=== PATIENT | female | born 1990 | race Caucasian/White ===

== ENCOUNTER → 2020-01-15 | Outpatient (CLI) | payer OTHER ==
[~2020-01-15] VITALS: Ht 157.5 cm; Wt 68.2 kg
[~2020-01-15] MED LIST: ACET65TA OR; IBUP800T OR; IRON SUCROSE 300 MG in NS 250 ML OVER 90 MIN. IV ONE; PRENTAB8 PO
[2020-01-15 10:25] VITALS: BP 112/73
[2020-01-15 11:20] VITALS: BP 107/60
[2020-01-15 12:35] VITALS: BP_SYST 116; BP_SYST 141; BP_DIAS 59; BP_DIAS 84
[2020-01-15 13:00] VITALS: BP 118/64
== END ==
LOC: M INFU 10:18
PROVIDERS: ATTEND Registered Nurse Maternal Newborn
DX: O99.013 Anemia complicating pregnancy, third trimester (principal); D50.9 Iron deficiency anemia, unspecified; Z3A.28 28 weeks gestation of pregnancy
CPT/HCPCS: 96365; J1756

== ENCOUNTER 2020-01-22 08:01 | Outpatient (CLI) | payer OTHER ==
[~2020-01-22] VITALS: Ht 157.5 cm; Wt 72.7 kg
[~2020-01-22 08:01] MED LIST changes: -IRON SUCROSE 300 MG in NS 250 ML OVER 90 MIN. IV ONE
[2020-01-22 08:05] VITALS: BP 102/63
[2020-01-22] MEDS ORDERED: IRON SUCROSE 300 MG in NS 250 ML OVER 90 MIN. IV ONE (09:00)
[2020-01-22 09:30] VITALS: BP 100/56
[2020-01-22 10:30] VITALS: BP 107/68
[2020-01-22 11:10] VITALS: BP 121/67
== END 2020-01-22 11:40 | disposition home or self-care (01) ==
LOC: M INFU 08:01
PROVIDERS: ATTEND Registered Nurse Maternal Newborn
DX: O99.013 Anemia complicating pregnancy, third trimester (principal); Z3A.28 28 weeks gestation of pregnancy
CPT/HCPCS: 96365; 96366; J1756

== ENCOUNTER 2020-01-29 07:58 | Outpatient (CLI) | payer OTHER ==
[~2020-01-29] VITALS: Ht 157.5 cm; Wt 68.2 kg
[2020-01-29 08:25] VITALS: BP 115/56
[2020-01-29 08:45] VITALS: BP 107/56
[2020-01-29] MEDS ORDERED: IRON SUCROSE 300 MG in NS 250 ML OVER 90 MIN. IV ONE (09:00)
[2020-01-29 09:45] VITALS: BP 107/59
[2020-01-29 10:12] VITALS: BP 114/71
== END 2020-01-29 10:15 | disposition home or self-care (01) ==
LOC: M INFU 07:58
PROVIDERS: ATTEND Registered Nurse Maternal Newborn
DX: O99.013 Anemia complicating pregnancy, third trimester (principal); Z3A.28 28 weeks gestation of pregnancy; Z88.5 Allergy status to narcotic agent
CPT/HCPCS: 96365; J1756

== ENCOUNTER 2020-04-01 13:53 | Inpatient (IN) | payer OTHER ==
[2020-04-01] VITALS (18 sets, daily range): BP systolic 99–125; BP diastolic 53–81
[~2020-04-01] VITALS: Ht 157.5 cm; Wt 83.0 kg
[2020-04-01] MEDS ORDERED: IRON65TA2 PO (14:30)
[2020-04-01] MEDS ORDERED: TUMS500C PO (14:30)
[2020-04-01] MEDS ORDERED: LACTATED RINGER'S 1000 ML IV STA (14:41)
[2020-04-01] MEDS ORDERED: OXYTOCIN DRIP 30 UNITS in IV 1 EA IV SCH (14:45)
[2020-04-01 15:06] LABS: BASO % 0.1 % (0.0-1.0); EOS % 0.4 % (0.0-3.0); HEMOGLOBIN 11.6 g/dl (12.0-15.5); LYMPH # 1.7 10^3/uL (1.5-5.0); LYMPH % 23.1 % (24.0-44.0); MEAN CORPUSCULAR HEMOGLOBIN 29.5 pg (27.0-33.0); MEAN CORPUSCULAR HGB CONC 33.1 g/dl (32.0-36.5); MEAN CORPUSCULAR VOLUME 89.1 fl (80.0-96.0); MONO # 0.6 10^3/uL (0.0-0.8); MONO % 7.4 % (0.0-5.0); NEUTROPHILS # 5.1 10^3/uL (1.5-8.5); NEUTROPHILS % 68.5 % (36.0-66.0); PLATELET COUNT, AUTOMATED 153 10^3/uL (150-450); RED BLOOD COUNT 3.93 10^6/uL (4.00-5.40); WHITE BLOOD COUNT 7.5 10^3/uL (4.0-10.0)
[2020-04-01] MEDS: LR 1,000 ML IV SCH ×2 (15:41→22:41)
--- NOTE | 2020-04-01 17:54 | IPNPDOC ---
Text Note Date of Service The patient was seen on 04/01/20. NOTE assume care from MAJ Love. patient is a 30 yo at 39+4 weeks admitted for elective IOL. She was checked to be 2/50, perdue bulb placed and pit started, no at 4mU. patient did have low lying placenta that had resolved on subsequent US. vitals: normal NAD fth: 125/mod christian/pos accel/no decel. toco: ctx q 3 mins ce: perdue bulb half way in vagina, small amount of bleeding, a/p patient not in labor. discussed with patient regarding small amount of vaginal bleeding. could be from perdue bulb starting to come out. will continue induction as long as baby and mother clinically well. DO Melvi VS,Idalmis, I+O VS, Idalmis, I+O Laboratory Tests 04/01/20 14:55 Vital Signs Date Time Temp Pulse Resp B/P (MAP) Pulse Ox O2 Delivery O2 Flow Rate FiO2 04/01/20 14:08 98.0 109 16 109/57 (74) VÍCTOR MAYORGA DO April 01, 2020 17:54
[2020-04-02] VITALS (47 sets, daily range): BP systolic 91–131; BP diastolic 50–80
[2020-04-02] MEDS ORDERED: MORPHINE 10 MG/ML 1ML VIAL (J2270) IM ONE (00:30)
[2020-04-02] MEDS ORDERED: MORPHINE 10 MG/ML 1ML VIAL (J2270) IV ONE (00:30)
[2020-04-02] MEDS ORDERED: PROMETHAZINE INJ 25 MG/ML VIAL (J2550) IV ONE (00:30)
[2020-04-02] MEDS: LR 1,000 ML IV SCH ×2 (09:28→13:44)
[2020-04-02] MEDS ORDERED: OXYTOCIN DRIP 30 UNITS in IV 1 EA IV SCH (15:40)
[2020-04-02] MEDS ORDERED: miSOPROStol 200 MCG TAB (S0191) PR ONE (15:45)
[2020-04-02] MEDS ORDERED: MOM 30ML SUSPENSION UDC PO PRN (15:45)
[2020-04-02] MEDS ORDERED: MEASLES,MUMPS,RUBELLA VACCINE INJ (MMR-II) (90707) SC SCH (15:45)
[2020-04-02] MEDS ORDERED: METHYLERGONOVINE MALEATE 0.2 MG TAB PO PRN (15:45)
[2020-04-02] MEDS ORDERED: METOCLOPRAMIDE INJ 10MG/2ML VIAL (J2765 PER 1) IV PRN (15:45)
[2020-04-02] MEDS ORDERED: ANUSOL HC CREAM 30GM TOP PRN (15:45)
[2020-04-02] MEDS ORDERED: ONDANSETRON 4MG/2ML VIAL IV PRN (15:45)
[2020-04-02] MEDS ORDERED: DIBUCAINE 1% OINTMENT 30GM TOP PRN (15:45)
[2020-04-02] MEDS ORDERED: DOCUSATE SODIUM 100 MG CAP PO PRN (15:45)
[2020-04-02] MEDS: IBUPROFEN 800 MG TAB PO PRN (15:59)
[2020-04-02] MEDS: ACETAMINOPHEN 500 MG TAB PO PRN (19:39)
[2020-04-03] MEDS: IBUPROFEN 800 MG TAB PO PRN (05:23)
[2020-04-03 05:58] VITALS: BP 109/58
[2020-04-03] MEDS: ACETAMINOPHEN 500 MG TAB PO PRN (07:41)
[2020-04-03] MEDS ORDERED: miSOPROStol 200 MCG TAB (S0191) As Ordered ONE (08:29)
[2020-04-03] MEDS ORDERED: PRENATAL VITAMINS CHEWABLE TABLET PO SCH (09:00)
--- NOTE | 2020-04-03 10:03 | IPNPDOC ---
Progress Note Date of Service: April 03, 2020 Day#: 1 Progress Note SUBJECT: Patient is a 30-year-old 4 now Para 3 status post uncomplicated spontaneous vaginal delivery with post vaginal clyde without repair, doing well day # 1. She has been ambulating, voiding spontaneously without issue and tolerating regular diet. Breast feeding without issue. Reports lochia is like a normal period. Patient is ambulating well. Reports some cramping with . Denies any pain. OBJECTIVE: VITAL SIGNS: Within normal limits, afebrile. GENERAL: No acute distress HEENT: MMM BREAST: Nontender, no erythema CARDIOVASCULAR EXAMINATION: RRR RESPIRATORY EXAMINATION: Bilaterally clear ABDOMINAL EXAMINATION: Soft, appropriate tenderness, nondistended, fundus -2 PERINEUM: Intact, minimal lochia EXTREMITIES: no edema, nontender ASSESSMENT: Patient is a 30-year-old 4 now Para 3 status post uncomplicated spontaneous vaginal delivery with post vaginal clyde without repair, doing well day # 1. Vitals within normal limits, afebrile, hemodynamically stable with no evidence of infection. PLAN: 1. Continue care 2. Tylenol and Motrin for pain. 3. Encourage breast feeding and ambulation. VS, I&O, 24H, Fishbone Vital Signs/I&O Vital Signs Date Time Temp Pulse Resp B/P (MAP) Pulse Ox O2 Delivery O2 Flow Rate FiO2 04/02/20 16:37 80 109/71 (84) 04/02/20 16:22 16 04/02/20 15:37 98.1 04/02/20 06:14 Room Air 04/02/20 06:00 100 Laboratory Data 24H LABS Laboratory Tests 2 04/01/20 19:00: Bedside Glucose (Misc Panel) 104 04/01/20 20:56: Bedside Glucose (Misc Panel) 93 04/01/20 22:56: Bedside Glucose (Misc Panel) 92 04/02/20 00:58: Bedside Glucose (Misc Panel) 80 04/02/20 03:12: Bedside Glucose (Misc Panel) 86 04/02/20 05:02: Bedside Glucose (Misc Panel) 107H 04/02/20 06:56: Bedside Glucose (Misc Panel) 79 Mayra Olmstead MD April 02, 2020 17:20
[2020-04-03 13:40] LABS: BASO % 0.3 % (0.0-1.0); EOS % 0.5 % (0.0-3.0); HEMATOCRIT 28.4 % (36.0-47.0); LYMPH % 22.2 % (24.0-44.0); MEAN CORPUSCULAR HEMOGLOBIN 30.1 pg (27.0-33.0); MEAN CORPUSCULAR HGB CONC 33.1 g/dl (32.0-36.5); MONO # 0.5 10^3/uL (0.0-0.8); MONO % 6.1 % (0.0-5.0); NEUTROPHILS # 6.2 10^3/uL (1.5-8.5); NEUTROPHILS % 70.2 % (36.0-66.0); PLATELET COUNT, AUTOMATED 147 10^3/uL (150-450); RED BLOOD COUNT 3.12 10^6/uL (4.00-5.40); WHITE BLOOD COUNT 8.9 10^3/uL (4.0-10.0)
[2020-04-03 13:42] LABS: HEMOGLOBIN 9.4 g/dl (12.0-15.5)
[2020-04-03 18:00] VITALS: BP 130/86
--- NOTE | 2020-04-03 18:19 | OBDS ---
[facility] Obstetrical Discharge Sum. Obstetrical Discharge Summary : 4 Term: 3 VDRL: Non-Reactive Rh: Positive Rubella: Immune Sex: Male Infant Weight: grams (4060) Anesthesia: Regional Anesthesia Episiotomy none A/P, Post Course List any complications Admission diagnosis: Elective IOL, Term , GDMA1, Anemia Discharge diagnosis: Elective IOL, Term , GDMA1, Anemia Condition at Discharge: Stable Discharge Instructions: Home Activity: Ad chris with pelvic rest Diet: Regular Medications: As received during 36wk visit Follow-up: 6wks Other: None Her is c/b anemia (received three IVFE infusions in early 3rd trimester), low-lying placenta that has since been reported to be resolved, overweight w/ excessive weight gain and A1GDM, well controlled. HOSPITAL COURSE: Patient was admitted for IOL. She had an uncomplicated . Her course was uncomplicated with normal lochia, pain and spontaneous voiding. She ambulated and ate without difficulty. Pt is stable for discharge. Mayra Kaur MD April 02, 2020 17:16 KATHLEEN ANGELES CNM April 03, 2020 18:19
[2020-04-03] MEDS ORDERED: DOCU100C16 PO (18:22)
--- NOTE | 2020-04-06 22:30 | IPN ---
DATE: 04/03/2020 This patient requested circumcision of her male after discussing the risks and benefits of circumcision, the medical, the nonmedical indications, penile block and aftercare. Expressed understanding of penile block and aftercare, signed the consent form. All questions were answered. 20-minute discussion. We await the clearance by the casino banker.
== END 2020-04-03 19:30 | disposition home or self-care (01) | DRG 807 ==
LOC: M LDI 13:53 → M OBS 04-02 18:09
PROVIDERS: ADMIT Advanced Practice Midwife; ATTEND Advanced Practice Midwife
PROC: 3E033VJ Introduction of Other Hormone into Peripheral Vein, Percutaneous Approach (ICD-10-PCS; 2020-04-01)
PROC: 10E0XZZ Delivery of Products of Conception, External Approach (ICD-10-PCS; principal; 2020-04-02)
PROC: 10907ZC Drainage of Amniotic Fluid, Therapeutic from Products of Conception, Via Natural or Artificial Opening (ICD-10-PCS; 2020-04-02)
DX: O99.02 Anemia complicating childbirth (principal); Z37.0 Single live birth; D64.9 Anemia, unspecified; Z3A.39 39 weeks gestation of pregnancy; O24.420 Gestational diabetes mellitus in childbirth, diet controlled

== ENCOUNTER 2020-06-23 08:00 | Day surgery (SDC) | payer OTHER ==
[~2020-06-23 08:00] MED LIST changes: +DOCU100C16 PO; +IRON65TA2 PO; +TUMS500C PO
[2020-06-23] MEDS ORDERED: ONDANSETRON 4MG/2ML VIAL ONE (08:14)
[2020-06-23] MEDS ORDERED: dexameTHASONE 4 MG/ML 1ML VIAL (J1100 PER 1MG) ONE (08:14)
[2020-06-23] MEDS ORDERED: propofoL 200 MG/20 ML VIAL ONE (08:14)
[2020-06-23] MEDS ORDERED: ROCURONIUM BROMIDE 50 MG/5 ML VIAL ONE (08:14)
[2020-06-23] MEDS ORDERED: LIDOCAINE 2% 100MG/5ML SDV (FOR ANES.) ONE (08:14)
[2020-06-23] MEDS ORDERED: MIDAZOLAM INJ 2MG/2ML VIAL (J2250 PER 1MG) ONE (08:15)
[2020-06-23] MEDS ORDERED: fentaNYL 100 MCG/2 ML INJECTION (J3010) ONE (08:15)
[2020-06-23] MEDS ORDERED: KETOROLAC 60MG 2ML VIAL ONE (08:38)
[2020-06-23] MEDS ORDERED: ACETAMINOPHEN 1000MG 100ML IV BTL (OFIRMEV) (J0131 PER 10MG) ONE (09:31)
[2020-06-23] MEDS ORDERED: HYDROmorphone HCL 2 MG/ML 1ML VIAL (J1170) ONE (09:41)
[2020-06-23] MEDS ORDERED: SUGAMMADEX SODIUM 500 MG/5 ML VIAL (BRIDION) ONE (09:41)
[2020-06-23] MEDS ORDERED: PERCOCET 5MG/325MG TAB ONE (11:03)
[2020-06-23] MEDS ORDERED: PERCOCET 5MG/325MG TAB As Ordered ONE (11:03)
[2020-08-15 01:01] LABS: BASO % 0.7 % (0.0-1.0); EOS # 0.1 10^3/uL (0.0-0.5); EOS % 2.3 % (0.0-3.0); HEMOGLOBIN 12.9 g/dl (12.0-15.5); LYMPH % 33.2 % (24.0-44.0); MEAN CORPUSCULAR HEMOGLOBIN 30.4 pg (27.0-33.0); MEAN CORPUSCULAR HGB CONC 33.1 g/dl (32.0-36.5); MONO # 0.4 10^3/uL (0.0-0.8); MONO % 7.2 % (0.0-5.0); NEUTROPHILS # 3.4 10^3/uL (1.5-8.5); NEUTROPHILS % 56.3 % (36.0-66.0); PLATELET COUNT, AUTOMATED 229 10^3/uL (150-450); RED BLOOD COUNT 4.24 10^6/uL (4.00-5.40)
--- NOTE | 2020-08-19 10:57 | RO ---
DATE OF OPERATION: 06/23/2020 PREOPERATIVE DIAGNOSIS: * Undesired fertility. * Higher risk of ovarian cancer. POSTOPERATIVE DIAGNOSIS: 1. Undesired fertility. 2. Higher risk of ovarian cancer. PROCEDURE: Laparoscopic bilateral salpingectomy. SURGEON: Mayra Olmstead M.D. PROFESSOR OF MUSIC: None. ANESTHESIA: GETA. ESTIMATED BLOOD LOSS: Less than 5 mL estimated. IV FLUIDS: 800 mL lactated Ringer's. URINE OUTPUT: 50 mL. by Dinh catheter measured. SPECIMEN: Bilateral fallopian tubes. DRAINS: None. COMPLICATIONS: None. FINDINGS: Normal pelvis without evidence of adhesions or endometriosis. Normal anteverted uterus and bilateral fallopian tubes and ovaries without cysts. PROCEDURE IN DETAIL: The patient was brought back to the operating room and general anesthesia was then induced. Exam under anesthesia was then performed with the above findings. The patient was placed in the dorsal lithotomy position and then draped and prepped in the sterile fashion and a total of three minutes was waited before draping to ensure full dryness of the prep. Dinh catheter was placed. Sponge stick was placed in the vagina for uterine manipulation, and then surgeon's gloves were then changed. Attention was then brought to the abdomen where a 1 cm skin incision was made vertically in the infraumbilical fold while spreading with a Delfina clamp. Dissection was performed down to the fascial layer with a Delfina clamp. Two skin clamps were then placed for elevation of the abdominal wall. A Veress needle was then checked with normal saline solution and attached. This was then introduced vertically into the incision with elevation of the abdominal wall at a 90 degree angle until all the layers were thought to have been broken through, both peritoneal and fascial layer. The syringe was withdrawn and then water was introduced. The pressure was then checked and initially at 2 mmHg of intra-abdominal pressure was noted and then it went up to 10 mmHg with a total of one liter placed. Veress needle was then removed and then replaced in the same fashion and at this time, a better pressure remained at 2 mmHg with placing a total of 1-1/2 liters as this was felt to be in better position intra-abdominally. Veress needle was then removed. 5 mm trocar introducer was attached to a zero degree laparoscope and then introduced into the abdomen under direct visualization with elevation of the abdomen and there was noted to be preperitoneal insufflation. However, this was introduced intra-abdominally. Another two liters was introduced to have a good pneumoperitoneum within the abdomen so there was a total of 3-1/2 liters. Pressures remained under 15 mmHg. The patient was then placed in Trendelenburg. The uterus was manipulated to show both fallopian tubes. A second incision was then made in the midline placed approximately 4 cm superior to the pubic bone, transversing just under 1 cm with a 12 blade scalpel. Again dissection was performed with a Delfina clamp down to the fascia and under direct visualization, a 5 mm trocar was introduced without difficulty. Atraumatic graspers were introduced and the fallopian tubes were placed away from any bowel or harm up towards the uterus. LigaSure was then introduced and used to transect the left fimbriated the ends along the mesosalpinx until approximately 1 cm from the fundus of the uterus. At that time, the fallopian tube was then transected completely. The fallopian tube was then brought for specimen up through the port. With atraumatic graspers, the mesosalpinx in area of dissection was checked and found to be completely hemostatic. This same process was repeated on the patients left side to remove the left fallopian tube without difficulty. Pictures were taken. Both mesosalpinges were found to be completely hemostatic. Ureters and utero-ovarian ligaments and IPs were examined and found to be without injury or close to areas of dissection. Trocars were then removed under direct visualization while removing the pneumoperitoneum without bleeding. Skin incisions were then closed in a subcuticular fashion with 4-0 Monocryl. Dermabond was then used. Band-Aids were placed. Lap, needle, and instrument count were correct x2. Band-Aids were then placed over the incisions. The patient was in stable condition to the recovery room. KENNEDY
== END 2020-06-23 13:29 | disposition home or self-care (01) ==
LOC: M SDC 08:00
PROVIDERS: ATTEND Obstetrics & Gynecology
DX: Z30.2 Encounter for sterilization (principal); Z88.5 Allergy status to narcotic agent
CPT/HCPCS: 36415; 58661; 84703; 85025; 85730; 86850; 86900; 86901; 88302; J0131; J1100; J1170; J1885; J2250; J2405; J3010

== ENCOUNTER → 2022-03-09 | Outpatient (REF) | payer OTHER | LOC: M WUC 09:43 | PROVIDERS: ATTEND Physician Assistant | DX: J02.9 Acute pharyngitis, unspecified (principal) ==

== ENCOUNTER → 2022-05-04 | Outpatient (REF) | LOC: M PLAIMG 13:42 | PROVIDERS: ATTEND Internal Medicine | DX: R06.02 Shortness of breath (principal) ==